=== PATIENT | female | born 2000 | race Caucasian/White ===

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

== ENCOUNTER → 2022-03-09 11:30 | Outpatient (BNVA) | payer OTHER, SELFPAY | PROVIDERS: Family Provider Family Medicine; PCP Registered Nurse; Visit Provider Nurse Practitioner Family | DX: M79.641 Pain in right hand (principal) | CPT/HCPCS: 73130 ==

== ENCOUNTER 2022-06-30 10:17 | Emergency (ER) | payer MEDICAID, SELFPAY ==
[2022-06-30 10:26] VITALS: BP 155/105; PULSE 76; RESP 16; TEMP 36.7; O2SAT 99
--- NOTE | 2022-06-30 10:41 | W.ED.SKABFB ---
HPI - Skin/Abscess/Foreign Bdy General: Chief complaint: Skin/Abscess/Foreign Body Stated complaint: hand pain Time Seen by Provider: 06/30/22 10:21 Source: patient Mode of arrival: ambulatory Limitations: no limitations History of Present Illness: Patient is a 21-year-old patient here for complaints of an acute on chronic rash to the right hand. Patient states that rash has been present for a few years but has seemed to worsen over the past several days. Patient states rash will sometimes flare and then resolve back to its baseline but never fully goes away. 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 Patient has seen PCP for this issue and prescribed topical steroids. States rash is itchy and will sometimes be painful when skin starts cracking. MD complaint: rash Onset (ago): year(s) Tetanus up to date: yes Location: R hand Severity: mild Relieving factors: none Exacerbating factors: other (work exposures) Context: none Associated symptoms: Deny chills or fever(s) Treatments prior to arrival: OTC topical medication and corticosteroid Review of Systems Const: Denies: fever(s), chills, body aches, fatigue or malaise Musc: Reports: extremity pain (R hand/rash); Denies: extremity swelling, joint pain, joint swelling, joint redness, joint warmth or joint stiffness Skin/Breast: Reports: rash, pruritus and erythema Neuro: Denies: numbness in extremities, weakness in extremities or sensory changes PFSH ED PFSH: Medical History Mood disorder Social History Smoking and tobacco status: never smoked Alcohol intake: never Current occupation: Works at [employer] Current gender identity: Female Physical Exam Const: COMMON NORMALS: no acute distress, patient oriented x3, no limitations, alert and well nourished GENERAL APPEARANCE: cooperative ORIENTATION/CONSCIOUSNESS: Yes awake, Yes oriented to person, Yes oriented to place and Yes oriented to time Extremity: COMMON NORMALS: full ROM, capillary refill normal and no clubbing, cyanosis or edema NARRATIVE EXTREMITY EXAM: see skin assessment below Neuro: COMMON NORMALS: patient oriented x3 SENSORIUM/ORIENTATION: Yes alert, Yes oriented to person, Yes oriented to place and Yes oriented to time Skin: NARRATIVE SKIN EXAM: Eczematous skin changes noted to volar aspect of R hand Course Vital Signs: Vital signs: Vital Signs Temperature 98.1 F 06/30/22 10:26 Pulse Rate 76 06/30/22 10:26 Respiratory Rate 16 06/30/22 10:26 Blood Pressure 155/105 06/30/22 10:26 Pulse Oximetry 99 06/30/22 10:26 MDM - Skin/Abscess/Foreign Bdy Medicial Decision Making Symptoms consistent with a dyshidrotic/atopic eczema vs irritant dermatitis from work exposures or a combination of both. Recommend she start using her triamcinolone cream twice daily in addition to a thick eczema emollient especially at night. Discussed possibly somehow limiting her work exposures if at all possible. Recommend follow up with PCP. Discharge Plan Discharge Patient Disposition: Home Clinical Impression: Chronic eczema of hand Condition: Stable Prescriptions: No Action phentermine 37.5 mg capsule 37.5 mg PO DAILY Rx Instructions: must administer 30 minutes before or 1-2 hours after breakfast testosterone cypionate [Depo-Testosterone] 100 mg/mL oil 100 mg SUBCUT Q7D Discharge Orders: Discharge ED (Routine); Ordered 06/30/22 Ordered By: Joanne Gifford Referrals: Evelia Franklin [Primary Care Provider] - Activity Restrictions/Additional Instructions: As we discussed-use your triamcinolone cream followed by a thick eczema emollient twice daily. We also discussed limiting your work exposures (i.e soap, dishes, grease, scrubbing, frequent hand washing, etc) to help control symptoms. Coding Level of Care Code ED Semiconductor Wafers Tester for Tony Quesada
== END 2022-06-30 11:32 | disposition home or self-care (01) ==
PROVIDERS: Emergency Provider Physician Assistant; PCP Registered Nurse
DX: L30.9 Dermatitis, unspecified (principal)
CPT/HCPCS: 99282

== ENCOUNTER 2022-08-05 15:05 | Emergency (ER) | payer MEDICAID, SELFPAY ==
--- NOTE | 2022-08-05 15:13 | XRR_ITS ---
PROCEDURE INFORMATION: Exam: XR Right Wrist Exam date and time: 08/05/2022 3:25 PM Age: 21 years old Clinical indication: Injury or trauma; Fall; Blunt trauma (contusions or hematomas); Wrist; Right TECHNIQUE: Imaging protocol: Radiologic exam of the right wrist. Views: 3 or more views. COMPARISON: No relevant prior studies available. FINDINGS: Bones/joints: Normal. Soft tissues: Normal. XR/XR wrist RT min 3V* [id number] IMPRESSION: No acute findings.
--- NOTE | 2022-08-05 15:13 | XRR_ITS ---
PROCEDURE INFORMATION: Exam: XR Right Hand Exam date and time: 08/05/2022 3:25 PM Age: 21 years old Clinical indication: Injury or trauma; Fall; Blunt trauma (contusions or hematomas); Hand; Right TECHNIQUE: Imaging protocol: Radiologic exam of the right hand. Views: 3 or more views. COMPARISON: No relevant prior studies available. FINDINGS: Bones/joints: Normal. Soft tissues: Normal. XR/XR hand RT min 3V* [id number] IMPRESSION: No acute findings.
[2022-08-05 15:22] VITALS: BP 130/80; PULSE 66; TEMP 36.8; O2SAT 100; BMI 37.7
--- NOTE | 2022-08-05 15:54 | W.ED.EXTPRO ---
HPI - Extremity Problem General: Chief complaint: Extremity Injury, Upper Stated complaint: right wrist and hand injury Time Seen by Provider: 08/05/22 15:29 History of Present Illness: 21-year-old female presents emergency department chief complaint being angry in which she struck the right side of her hand involving the proximal portion of the fifth finger up against a coffee table patient reports moderate swelling and pain and abrasion located to it which is concerned she may have broken it patient presents to the ER for further assessment and management Associated symptoms: Deny chest pain or fever(s) Review of Systems General: Reports: 10 or more systems reviewed and unremarkable except in HPI and below Const: Denies: fever(s), chills, fatigue or malaise Eyes: Denies: change in vision or blurry vision Card: Denies: chest pain or palpitations Resp: Denies: dyspnea or productive cough GI: Denies: abdominal pain, nausea or vomiting : Denies: flank pain Musc: Reports: extremity pain and extremity swelling Skin/Breast: Reports: erythema and skin pain Neuro: Denies: headache(s) Psych: Denies: anxiety or depression Doug/Lymph: Denies: easy bleeding All/Imm: Denies: urticaria, throat swelling or facial swelling PFSH ED PFSH: Medical History (Updated 08/05/22 @ 16:01 by Gabriel Quispe) Mood disorder Social History Smoking and tobacco status: never smoked Alcohol intake: never Substance/Drug Use: never Current occupation: Works at [employer] Current gender identity: Female Physical Exam Const: COMMON NORMALS: no acute distress, patient oriented x3 and healthy appearing HENMT: COMMON NORMALS: normocephalic and atraumatic HEAD & SCALP: normocephalic and atraumatic Eye: COMMON NORMALS: Equal, round and reactive pupils present and EOMs intact bilaterally PUPIL: Yes Equal, round and reactive pupils present Neck/C-Spine: COMMON NORMALS: full ROM, supple and no JVD Lymph: LYMPHATIC: no lymphadenopathy noted Chest: COMMONS NORMALS: normal inspection of the chest and normal palpation of entire chest wall Resp: COMMON NORMALS: normal respiratory effort, No retractions and clear to auscultation bilaterally EFFORT & INSPECTION: Yes able to speak in complete sentences and Yes symmetric chest movement AUSCULTATION: clear to auscultation bilaterally Cardio: COMMON NORMALS: no JVD, regular rate and regular rhythm RATE: regular rate RHYTHM: regular rhythm GI: COMMON NORMALS: Normal to inspection, nondistended, normoactive bowel sounds present, Soft to palpation and non-tender INSPECTION: Yes normal to inspection PALPATION: Yes Soft to palpation : COMMON NORMALS: Yes no CVA tenderness BLADDER/KIDNEY EXAM: Yes no CVA tenderness Back/Pelvis: COMMON NORMALS: no CVA tenderness Extremity: NARRATIVE EXTREMITY EXAM: What appears to be abrasion and mild swelling to the medial component of the hypothenar prominence range of motion the finger appreciated mild swelling apparent neurovascular intact distally good capillary refill appreciated Neuro: COMMON NORMALS: patient oriented x3, CN's II-XII intact bilaterally, moves all extremities and no focal motor deficits Psych: COMMON NORMALS: mental status grossly normal, Normal thought process present, cooperative and normal affect THOUGHT PROCESS: Normal thought process present Course Vital Signs: Vital signs: Vital Signs Temperature 98.3 F 08/05/22 15:22 Pulse Rate 66 08/05/22 15:22 Blood Pressure 130/80 08/05/22 15:22 Pulse Oximetry 100 08/05/22 15:22 Oxygen Delivery Me thod Room Air 08/05/22 15:22 MDM - Extremity (Nontraumatic) Medical Decision Making Basic wound care will be applied to the hand patient will be placed into a cock-up wrist splint for comfort advised further follow-up as needed primary care in 2 to 3 days in which advised to return the interim if any of your symptoms persist or worse. Lab Data Radiology Impressions Hand X-Ray 08/05/22 15:13 IMPRESSION: No acute findings. Wrist X-Ray 08/05/22 15:13 IMPRESSION: No acute findings. Discharge Plan Discharge Patient Disposition: Home Clinical Impression: Sprain and strain of wrist, Abrasion of hand and fingers Condition: Stable Prescriptions: New Motrin IB 200 mg capsule 200 mg PO Q6H PRN (Reason: pain) Qty: 30 0RF No Action phentermine 37.5 mg capsule 37.5 mg PO DAILY Rx Instructions: must administer 30 minutes before or 1-2 hours after breakfast testosterone cypionate [Depo-Testosterone] 100 mg/mL oil 100 mg SUBCUT Q7D Discharge Orders: Discharge ED (Routine); Ordered 08/05/22 Ordered By: Gabriel Quispe Referrals: Evelia Franklin [Primary Care Provider] - 4-7 days Discharge Diet: Advance as tolerated Discharge Activity: Increase activity as tolerated Patient Instructions: Abrasion (ED), Pain Management, Sprains - Wrist Activity Restrictions/Additional Instructions: Please further follow-up with her primary care doctor in 3 to 4 days, use a wrist splint for comfort take medication as prescribed and please return the interim if any of your symptoms persist or worse. Coding Level of Care Code ED Solar Sales Associate for Tony Quesada
[2022-08-05 16:08] VITALS: BP 130/80; PULSE 66; RESP 19; O2SAT 100
== END 2022-08-05 16:10 | disposition home or self-care (01) ==
PROVIDERS: Emergency Provider Emergency Medicine; PCP Registered Nurse
DX: S63.501A Unspecified sprain of right wrist, initial encounter (principal); S66.911A Strain of unspecified muscle, fascia and tendon at wrist and hand level, right hand, initial encounter; S60.511A Abrasion of right hand, initial encounter; W22.8XXA Striking against or struck by other objects, initial encounter
CPT/HCPCS: 73110; 73130; 99283

== ENCOUNTER 2023-10-22 03:13 | Inpatient (IN) | payer OTHER, MEDICAID, SELFPAY ==
[2023-10-22 03:23] VITALS: BMI 45.6
[2023-10-22 03:36] LABS: HCG Qualitative Urine. Negative (Negative)
[2023-10-22 03:44] LABS: Add Urine Microscopic? YES; Bilirubin Urine Neg (Negative); Blood Urine Neg (Negative); Glucose Urine UA Norm (Normal); Ketones Urine Negative (Negative); Leukocyte Esterase Urine 1+ (Negative); Nitrate Urine Negative (Negative); Protein Urine Neg (Negative); Specific Gravity, Urine 1.025 (1.005-1.030); Urine Appearance Slightly Cloudy (CLEAR); Urine Color Yellow (Yellow); Urobilinogen Urine Neg (Negative); pH Urine 5 (5-7)
[2023-10-22 03:45] LABS: Add Urine Culture? No; Bacteria Urine 3+ /hpf; Mucus Urine 2+ /hpf; Squamous Epithelial Cell Urine 15-25 /hpf (0-5); WBC Urine 0-4 /hpf (0-5)
[2023-10-22 03:47] LABS: Amphetamines Screen Urine Negative (Negative); Barbiturates Screen Urine Negative (Negative); Benzodiazepines Screen Urine Negative (Negative); Cocaine Screen Urine Negative (Negative); Opiate Screen Urine Negative (Negative); PCP Screen Urine Negative (Negative); THC Screen Urine Positive (Negative)
[2023-10-22 03:47] LABS: Basophils % 0.3 %; Eosinophils # 0.2 10^3/uL (0.0-0.8); Eosinophils % 2.1 %; Hematocrit 40.4 % (36-47); Lymphocytes # 2.2 10^3/uL (0.8-4.8); Lymphocytes % 22.2 %; Mean Corpuscular HGB Conc 33.7 g/dL (30-55); Mean Corpuscular Hemoglobin 27.9 pg (27-33); Mean Corpuscular Volume 82.8 fl (85-98); Mean Platelet Volume 9.8 fL (7.4-10.4); Monocytes # 0.7 10^3/uL (0.2-0.9); Monocytes % 6.8 %; Neutrophils # 6.69 10^3/uL (1.8-7.7); Neutrophils % 68.2 %; Nucleated Red Blood Cells % 0 %; Platelet Count 315 10^3/cmm (157-399); Red Blood Count 4.88 10^6/uL (3.85-5.65); Red Cell Distribution Width 13.2 % (12.1-15.1); White Blood Count 9.82 10^3/uL (3.29-11.43)
--- NOTE | 2023-10-22 03:57 | ECG_ITS ---
[facility] Test Date: 2023-10-22 Pat Name: Nereyda Torres (AJ) Department: Room: Gender: Female Medicine And Health Service Manager: : 2000 Requested By: Micah Julian Order Number: [id number] MD: Meche Mills M.D. Measurements Intervals [place] Rate: 83 P: 33 OR: 162 QRS: 17 QRSD: 94 T: 35 QT: 344 QTc: 405 Interpretive Statements SINUS RHYTHM No previous ECG available for comparison Electronically Signed On 10-23-2023 6:25:34 CDT by Meche Mills M.D. [id number]
--- NOTE | 2023-10-22 04:09 | ED.C_ITS ---
Documented by User: Micah Julian DO 10/22/23 04:10 HPI - Psych 2 General: Chief Complaint: Psychiatric Symptoms Stated Complaint: SI Time Seen by Provider: 10/22/23 03:30 History of Present Illness: Patient presents to the ER for complaints of suicidal ideation. Patient is having thoughts of cutting her wrist and wanting to . Patient has been having these thoughts for a while but she has been seeing a counselor in the past which helped but has not seen a counselor in about a year and a half. Patient tried to get into [facility] and other therapy locations but they all have her on the waiting list. Patient also complains about headache and nausea. Review of Systems 2 General: Reports: 10 or more systems reviewed and unremarkable except in HPI and below PFSH ED 2 PFSH: Medical History Psychiatric care Mood disorder Social History Smoking and tobacco/nicotine status: never used tobacco/nicotine Alcohol intake: never Substance/Drug Use: never Current occupation: Works at [employer] Current gender identity: Female Physical Exam 2 Const: COMMON NORMALS: no acute distress, average body habitus, patient oriented x3, no limitations, healthy appearing, alert and well nourished HENMT: COMMON NORMALS: normocephalic, atraumatic, hearing grossly normal bilaterally, external ears normal, Normal external nose present and moist oral mucous membranes HEAD & SCALP: normocephalic and atraumatic NOSE: Normal external nose present EXTERNAL EAR: Yes external ears normal Neck/C-Spine: COMMON NORMALS: full ROM, no lymphadenopathy, supple, no meningeal signs, no JVD and Thyroid normal THYROID: Thyroid normal Chest: COMMONS NORMALS: normal inspection of the chest and normal palpation of entire chest wall Resp: COMMON NORMALS: normal respiratory effort, No retractions and No use of accessory muscles Cardio: COMMON NORMALS: no JVD, regular rate, regular rhythm, S1 normal heart sound present, S2 normal heart sound present, No gallops present (Cardio), No clicks present (Cardio), No murmurs present (Cardio) and No rub (Cardio) R ATE: regular rate RHYTHM: regular rhythm HEART SOUNDS: S1 normal heart sound present and S2 normal heart sound present GI: COMMON NORMALS: Normal to inspection, nondistended, normoactive bowel sounds present, Soft to palpation, non-tender, No hepatosplenomegaly present and no masses PALPATION: Yes Soft to palpation and Yes No hepatosplenomegaly present Neuro: COMMON NORMALS: patient oriented x3 SENSORIUM/ORIENTATION: Yes alert MENINGEAL SIGNS: Yes no meningeal signs Course 2 Vital Signs: Vital signs: Vital Signs Oxygen Delivery Me thod Room Air 10/22/23 03:23 MDM - Psych Differential Diagnosis Likely suicidal ideation Medical Records I reviewed the patient's medical records. Lab Data I reviewed the patient's lab results. 10/22/23 03:43 10/22/23 03:43 Laboratory Results WBC 9.82 10^3/uL (3.29-11.43) 10/22/23 03:43 RBC 4.88 10^6/uL (3.85-5.65) 10/22/23 03:43 Hgb 13.60 g/dL (11.27-16.99) 10/22/23 03:43 Hct 40.4 % (36-47) 10/22/23 03:43 MCV 82.8 fl (85-98) L 10/22/23 03:43 MCH 27.9 pg (27-33) 10/22/23 03:43 MCHC 33.7 g/dL (30-55) 10/22/23 03:43 RDW 13.2 % (12.1-15.1) 10/22/23 03:43 Plt Count 315 10^3/cmm (157-399) 10/22/23 03:43 MPV 9.8 fL (7.4-10.4) 10/22/23 03:43 Neut % (Auto) 68.2 % 10/22/23 03:43 Lymph % (Auto) 22.2 % 10/22/23 03:43 [place] % (Auto) 6.8 % 10/22/23 03:43 Eos % (Auto) 2.1 % 10/22/23 03:43 Baso % (Auto) 0.3 % 10/22/23 03:43 Neut # (Auto) 6.69 10^3/uL (1.8-7.7) 10/22/23 03:43 Lymph # (Auto) 2.2 10^3/uL (0.8-4.8) 10/22/23 03:43 [place] # (Auto) 0.7 10^3/uL (0.2-0.9) 10/22/23 03:43 Eos # (Auto) 0.2 10^3/uL (0.0-0.8) 10/22/23 03:43 Baso # (Auto) 0.0 10^3/uL (0.0-0.1) 10/22/23 03:43 Nucleated RBC % (auto) 0 % 10/22/23 03:43 Nucleated RBCs # 0.0 /100WBC 10/22/23 03:43 Sodium 139 mmol/L (136-145) 10/22/23 03:43 Potassium 4.2 mmol/L (3.5-5.1) 10/22/23 03:43 Chloride 105 mmol/L (98-107) 10/22/23 03:43 Carbon Dioxide 24 mmol/L (22-29) 10/22/23 03:43 Anion Gap 14.2 (5-19) 10/22/23 03:43 BUN 13 mg/dL (6-20) 10/22/23 03:43 Creatinine 0.6 mg/dL (0.5-0.9) 10/22/23 03:43 GFR Calculation 125.0 mL/min (90-130) 10/22/23 03:43 Glucose 134 mg/dL (65-115) H 10/22/23 03:43 Calculated Osmolality 290 mOsm/kg (285-295) 10/22/23 03:43 Calcium 8.8 mg/dL (8.5-10.5) 10/22/23 03:43 Total Bilirubin 0.3 mg/dL (0.15-1.2) 10/22/23 03:43 AST 13 U/L (0-32) 10/22/23 03:43 ALT 20 U/L (0-33) 10/22/23 03:43 Alkaline Phosphatase 46 U/L (35-105) 10/22/23 03:43 Total Protein 7.0 g/dL (6.6-8.7) 10/22/23 03:43 Albumin 4.1 g/dL (3.5-5.2) 10/22/23 03:43 Globulin 2.9 g/dL (1.3-4.6) 10/22/23 03:43 TSH 4.13 uIU/mL (0.27-4.20) 10/22/23 03:43 HCG, Qual Negative (Negative) 10/22/23 03:25 Urine Color Yellow (Yellow) 10/22/23 03:30 Urine Appearance Slightly cloudy (CLEAR) 10/22/23 03:30 Urine pH 5 (5-7) 10/22/23 03:30 Ur Specific [place] 1.025 (1.005-1.030) 10/22/23 03:30 Urine Protein Neg (Negative) 10/22/23 03:30 Urine Glucose (UA) Norm (Normal) 10/22/23 03:30 Urine Ketones Negative (Negative) 10/22/23 03:30 Urine Blood Neg (Negative) 10/22/23 03:30 Urine Nitrate Negative (Negative) 10/22/23 03:30 Urine Bilirubin Neg (Negative) 10/22/23 03:30 Urine Urobilinogen Neg mg/dL (Negative) 10/22/23 03:30 Ur Leukocyte Esterase 1+ (Negative) H 10/22/23 03:30 Urine RBC None /hpf (0-2) 10/22/23 03:30 Urine WBC 0-4 /hpf (0-5) H 10/22/23 03:30 Ur Squamous Epith Cells 15-25 /hpf (0-5) H 10/22/23 03:30 Amorphous Sediment Not Reportable 10/22/23 03:30 Urine Bacteria 3+ /hpf (NONE) H 10/22/23 03:30 Urine Mucus 2+ /hpf 10/22/23 03:30 Salicylates 0.7 mg/dL (3-10) L 10/22/23 03:43 Urine Opiates Screen Negative ng/mL (Negative) 10/22/23 03:30 Acetaminophen < 5.0 ug/mL (10-30) L 10/22/23 03:43 Ur Barbiturates Screen Negative ng/mL (Negative) 10/22/23 03:30 Ur Phencyclidine Scrn Negative ng/mL (Negative) 10/22/23 03:30 Ur Amphetamines Screen Negative ng/mL (Negative) 10/22/23 03:30 U Benzodiazepines Scrn Negative ng/mL (Negative) 10/22/23 03:30 Urine Cocaine Screen Negative ng/mL (Negative) 10/22/23 03:30 U Marijuana (THC) Screen Positive ng/mL (Negative) H 10/22/23 03:30 Ethyl Alcohol < 10 mg/dL (0-10) 10/22/23 03:43 Influenza Type A Ag negative (Negative) 10/22/23 04:00 Influenza Type B Ag negative (Negative) 10/22/23 04:00 RSV Antigen Negative (Negative) 10/22/23 04:00 SARS-CoV-2 Ag (Rapid) Negative (Negative) 10/22/23 04:00 All radiology interpretation(s) finalized by discharge Discharge Plan Discharge Patient Disposition: Admitted As Inpatient Clinical Impression: Suicidal ideation Condition: Stable Prescriptions: No Action phentermine 37.5 mg capsule 37.5 mg PO DAILY Rx Instructions: must administer 30 minutes before or 1-2 hours after breakfast testosterone cypionate [Depo-Testosterone] 100 mg/mL oil 100 mg SUBCUT Q7D Motrin IB 200 mg capsule 200 mg PO Q6H PRN (Reason: pain) Qty: 30 0RF Referrals: Evelia Franklin [Primary Care Provider] - Coding Level of Care Code ED Skylights Assembler for Chg Fwd Documented by User: Mandi Dent MD 10/22/23 05:56 HPI - Psych 2 General: Chief Complaint: Psychiatric Symptoms Stated Complaint: SI Time Seen by Provider: 10/22/23 03:30 PFSH ED 2 PFSH: Medical History Psychiatric care Mood disorder Social History Smoking and tobacco/nicotine status: never used tobacco/nicotine Alcohol intake: never Substance/Drug Use: never Current occupation: Works at [employer] Current gender identity: Female Course 2 Vital Signs: Vital signs: Vital Signs Oxygen Delivery Me thod Room Air 10/22/23 03:23 MDM - Psych Medical Decision Making Patient presents here with suicidal ideations with a plan of cutting her wrist I spoke to psychiatrist and will admit at this time. Lab Data 10/22/23 03:43 10/22/23 03:43 Laboratory Results WBC 9.82 10^3/uL (3.29-11.43) 10/22/23 03:43 RBC 4.88 10^6/uL (3.85-5.65) 10/22/23 03:43 Hgb 13.60 g/dL (11.27-16.99) 10/22/23 03:43 Hct 40.4 % (36-47) 10/22/23 03:43 MCV 82.8 fl (85-98) L 10/22/23 03:43 MCH 27.9 pg (27-33) 10/22/23 03:43 MCHC 33.7 g/dL (30-55) 10/22/23 03:43 RDW 13.2 % (12.1-15.1) 10/22/23 03:43 Plt Count 315 10^3/cmm (157-399) 10/22/23 03:43 MPV 9.8 fL (7.4-10.4) 10/22/23 03:43 Neut % (Auto) 68.2 % 10/22/23 03:43 Lymph % (Auto) 22.2 % 10/22/23 03:43 [place] % (Auto) 6.8 % 10/22/23 03:43 Eos % (Auto) 2.1 % 10/22/23 03:43 Baso % (Auto) 0.3 % 10/22/23 03:43 Neut # (Auto) 6.69 10^3/uL (1.8-7.7) 10/22/23 03:43 Lymph # (Auto) 2.2 10^3/uL (0.8-4.8) 10/22/23 03:43 [place] # (Auto) 0.7 10^3/uL (0.2-0.9) 10/22/23 03:43 Eos # (Auto) 0.2 10^3/uL (0.0-0.8) 10/22/23 03:43 Baso # (Auto) 0.0 10^3/uL (0.0-0.1) 10/22/23 03:43 Nucleated RBC % (auto) 0 % 10/22/23 03:43 Nucleated RBCs # 0.0 /100WBC 10/22/23 03:43 Sodium 139 mmol/L (136-145) 10/22/23 03:43 Potassium 4.2 mmol/L (3.5-5.1) 10/22/23 03:43 Chloride 105 mmol/L (98-107) 10/22/23 03:43 Carbon Dioxide 24 mmol/L (22-29) 10/22/23 03:43 Anion Gap 14.2 (5-19) 10/22/23 03:43 BUN 13 mg/dL (6-20) 10/22/23 03:43 Creatinine 0.6 mg/dL (0.5-0.9) 10/22/23 03:43 GFR Calculation 125.0 mL/min (90-130) 10/22/23 03:43 Glucose 134 mg/dL (65-115) H 10/22/23 03:43 Calculated Osmolality 290 mOsm/kg (285-295) 10/22/23 03:43 Calcium 8.8 mg/dL (8.5-10.5) 10/22/23 03:43 Total Bilirubin 0.3 mg/dL (0.15-1.2) 10/22/23 03:43 AST 13 U/L (0-32) 10/22/23 03:43 ALT 20 U/L (0-33) 10/22/23 03:43 Alkaline Phosphatase 46 U/L (35-105) 10/22/23 03:43 Total Protein 7.0 g/dL (6.6-8.7) 10/22/23 03:43 Albumin 4.1 g/dL (3.5-5.2) 10/22/23 03:43 Globulin 2.9 g/dL (1.3-4.6) 10/22/23 03:43 TSH 4.13 uIU/mL (0.27-4.20) 10/22/23 03:43 HCG, Qual Negative (Negative) 10/22/23 03:25 Urine Color Yellow (Yellow) 10/22/23 03:30 Urine Appearance Slightly cloudy (CLEAR) 10/22/23 03:30 Urine pH 5 (5-7) 10/22/23 03:30 Ur Specific [place] 1.025 (1.005-1.030) 10/22/23 03:30 Urine Protein Neg (Negative) 10/22/23 03:30 Urine Glucose (UA) Norm (Normal) 10/22/23 03:30 Urine Ketones Negative (Negative) 10/22/23 03:30 Urine Blood Neg (Negative) 10/22/23 03:30 Urine Nitrate Negative (Negative) 10/22/23 03:30 Urine Bilirubin Neg (Negative) 10/22/23 03:30 Urine Urobilinogen Neg mg/dL (Negative) 10/22/23 03:30 Ur Leukocyte Esterase 1+ (Negative) H 10/22/23 03:30 Urine RBC None /hpf (0-2) 10/22/23 03:30 Urine WBC 0-4 /hpf (0-5) H 10/22/23 03:30 Ur Squamous Epith Cells 15-25 /hpf (0-5) H 10/22/23 03:30 Amorphous Sediment Not Reportable 10/22/23 03:30 Urine Bacteria 3+ /hpf (NONE) H 10/22/23 03:30 Urine Mucus 2+ /hpf 10/22/23 03:30 Salicylates 0.7 mg/dL (3-10) L 10/22/23 03:43 Urine Opiates Screen Negative ng/mL (Negative) 10/22/23 03:30 Acetaminophen < 5.0 ug/mL (10-30) L 10/22/23 03:43 Ur Barbiturates Screen Negative ng/mL (Negative) 10/22/23 03:30 Ur Phencyclidine Scrn Negative ng/mL (Negative) 10/22/23 03:30 Ur Amphetamines Screen Negative ng/mL (Negative) 10/22/23 03:30 U Benzodiazepines Scrn Negative ng/mL (Negative) 10/22/23 03:30 Urine Cocaine Screen Negative ng/mL (Negative) 10/22/23 03:30 U Marijuana (THC) Screen Positive ng/mL (Negative) H 10/22/23 03:30 Ethyl Alcohol < 10 mg/dL (0-10) 10/22/23 03:43 Influenza Type A Ag negative (Negative) 10/22/23 04:00 Influenza Type B Ag negative (Negative) 10/22/23 04:00 RSV Antigen Negative (Negative) 10/22/23 04:00 SARS-CoV-2 Ag (Rapid) Negative (Negative) 10/22/23 04:00 Discharge Plan Discharge Patient Disposition: Admitted As Inpatient Clinical Impression: Suicidal ideation Condition: Stable Prescriptions: No Action phentermine 37.5 mg capsule 37.5 mg PO DAILY Rx Instructions: must administer 30 minutes before or 1-2 hours after breakfast testosterone cypionate [Depo-Testosterone] 100 mg/mL oil 100 mg SUBCUT Q7D Motrin IB 200 mg capsule 200 mg PO Q6H PRN (Reason: pain) Qty: 30 0RF Referrals: Evelia Franklin [Primary Care Provider] - Coding Level of Care Code ED Skylights Assembler for Tony Quesada
[2023-10-22] MEDS: acetaminophen 500 mg Tablet 1000 MG PO (04:12)
[2023-10-22] MEDS: promethazine 25 mg Tablet PO (04:12)
[2023-10-22 04:16] LABS: Alanine Aminotransferase 20 U/L (0-33); Albumin Level 4.1 g/dL (3.5-5.2); Alkaline Phosphatase 46 U/L (35-105); Anion Gap 14.2 (5-19); Aspartate Amino Transferase 13 U/L (0-32); Blood Urea Nitrogen 13 mg/dL (6-20); Calcium 8.8 mg/dL (8.5-10.5); Carbon Dioxide 24 mmol/L (22-29); Chloride 105 mmol/L (98-107); Creatinine Clr Calc Pharmacy 215.3924; Globulin 2.9 g/dL (1.3-4.6); Glucose 134 mg/dL (65-115); Osmolality Calculated 290 mOsm/kg (285-295); Potassium 4.2 mmol/L (3.5-5.1); Salicylate 0.7 mg/dL (3-10); Sodium 139 mmol/L (136-145); Thyroid Stimulating Hormone 4.13 uIU/mL (0.27-4.20); Total Bilirubin 0.3 mg/dL (0.15-1.2)
[2023-10-22 04:22] LABS: Acetaminophen < 5.0 ug/mL (10-30); Alcohol Level < 10 mg/dL (0-10)
[2023-10-22 04:24] LABS: Influenza A by IFA negative (Negative); Influenza B by IFA negative (Negative)
[2023-10-22 04:25] LABS: RSV Transfer Patient (ED) Negative (Negative); SARS Covid-2 Antigen Negative (Negative)
[2023-10-22 06:07] VITALS: BP 134/86; PULSE 80; O2SAT 97
[2023-10-22 06:24] VITALS: BP 140/87; PULSE 72; RESP 18; TEMP 36.6; O2SAT 99
--- NOTE | 2023-10-22 09:49 | PC.NURSE ---
PT CURRENTLY DENIES SI/HI/AH/VH. PT CURRENTLY DENIES ANXIETY AT THIS TIME. PT CURRENTLY ENDORSES DEPRESSION RATING IT A 7/10 ON A 0-10 SCALE WHERE 0 IS NONE AND 10 IS THE WORST POSSIBLE. PT APPEARS FLAT AND BLAND IN AFFECT. PT WAS COOPERATIVE WITH ASSESSMENT. DURING ASSESSMENT PT BARELY MADE EYE CONTACT OR LIFTED HEAD OFF THE BED TO ADDRESS ME UNTIL PHYSICAL PORTION OF ASSESSMENT. PT CURRENT NEEDS ARE MET AT THIS TIME.
[2023-10-22 14:00] VITALS: BP 125/69; PULSE 59; RESP 18; TEMP 37.1; O2SAT 96
--- NOTE | 2023-10-22 18:55 | P.NPUHP_ITS ---
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 trazodone at night for insomnia. #4?? TO-15 minute checks #5?? Will attempt to gather collateral information ? Involuntary Hold Information 2 96 Hour Hold: 96 Hour Involuntary Admission: No Attestations NPU 2 Medical Necessity Statement*: Inpatient hospitalization is medically necessary and deemed to ?be ?the clinically appropriate intervention ?at this time.? We will monitor/initiate medications and make changes as indicated.? The patient will be in the hospital for over 2 midnights.? The patient?s likely length of stay 5-7 days. Coding Level of Care Code Acute Code for [facility] Fwd Diagnoses Major depressive disorder, recurrent severe without psychotic features F33.2 Borderline personality disorder F60.3 DESIRE (generalized anxiety disorder) F41.1 Suicidal ideation R45.851 Panic attacks F41.0
[2023-10-22 19:54] VITALS: BP 129/84; PULSE 72; RESP 20; TEMP 36.6; O2SAT 98
[2023-10-22] MEDS: hyDROXYzine 25 mg Capsule 50 MG PO (20:41)
[2023-10-22] MEDS: trazodone 50 mg Tablet PO (20:41)
[2023-10-22] MEDS: ondansetron 4 MG Tablet PO (23:02)
--- NOTE | 2023-10-22 23:36 | PC.NURSE ---
Patient inquired about leaving [facility] Charge nurse informed patient that he would need to inform M.D. and the doctor is likely to request patient stay until speaking with provider tomorrow (especially since she answered + to SI). Patient was alright with that and decided NOT to attempt to leave [facility]
[2023-10-23 06:00] VITALS: BP 138/89; PULSE 74; RESP 18; TEMP 36.7; O2SAT 97
--- NOTE | 2023-10-23 09:01 | PC.NURSE ---
IN BED RESTING AROUSES TO VOICE. PRONOUNS HE AND HIM PT STATES HE DID NOT SLEEP WELL LAST NIGHT AND ONLY SLEPT ON AND OFF. DENIES PAIN. DENIES SI/HI AND AVH AT THIS TIME. PT IS NOTED TO HAVE FLAT AFFECT AND DEPRESSED MOOD. EVASIVE WITH ASSESSMENT. RATES ANXIETY 3/10 AND DEPRESSION 5/10. PT EDUCATED ON PRN MEDICATIONS AND TO LET NURSES KNOW IF HE NEEDS ANY. VERBALIZED UNDERSTANDING. ALL QUESTIONS ANSWERED AND SUPPORT WAS VOICED.
[2023-10-23] MEDS: sertraline 50 mg Tablet 25 MG PO (09:14)
[2023-10-23 14:00] VITALS: BP 152/83; PULSE 68; RESP 16; TEMP 36.7; O2SAT 96
--- NOTE | 2023-10-23 16:41 | W.PM.NPUPNS ---
Subjective NPU Subjective: 23-year-old trans male history of borderline personality disorder, DESIRE, panic attacks and major depressive disorder admitted with suicidal ideation with a history of chronic self-injurious behavior. He reported that he was feeling better today and reported that he was hopeful to get help with his chronic thoughts of cutting. He had reported having engaged in this behavior for him over 8 years. He was unable to recall the longest period of time he had gone without engaging in self-injurious behavior. He had reported frequent emotional dysregulation. He had reported difficulties with concentration at times. He had reported struggles with managing oral intake as well as he had reported having been a binge eater for many years without any history of purging. He had reported that he had felt that the binge eating was out of control and that it may have contributed to the patient having been prevented from engaging in further transition being chemically as he had reported weight gain from testosterone and an inability to lose the weight from having been placed on phentermine despite being compliant with his medications. No side effects noted from his medications today. He had reported some improvement in sleep. Patient reports having panic attacks yesterday uncued and reports that she needs medication for anxiety. Mental Status Exam MSE Comments: Patient is a casually dressed person who appeared his stated age with fair eye contact and normal gait. His hygiene was fair. He was calm and cooperative on interview. His speech was normal in regards to rate rhythm and prosody. His thought process was linear logical and goal-directed. His thought content show fleeting suicidal ideation. There is no clear evidence of delusional thinking. He did not appear to be responding to internal stimuli. His attention span appeared adequate. His mood was described as depressed. His affect was restricted in range and mood congruent. His insight appeared poor. His judgment appeared poor. His impulse control appeared limited. His recent remote memory were grossly intact. He was alert and oriented to person place time and situation. Vitals/I&O/Wt Last Vital Signs Temp 98.0 F 10/23/23 14:00 Pulse 68 10/23/23 14:00 Resp 16 10/23/23 14:00 BP 152/83 10/23/23 14:00 Pulse Ox 96 10/23/23 14:00 O2 Del Method Room Air 10/23/23 14:00 Weight last 48 hrs Weight 136.078 kg Data NPU 10/22/23 03:43 10/22/23 03:43 A&P Assessment and plan (1) Major depressive disorder, recurrent severe without psychotic features: (2) Borderline personality disorder: (3) DESIRE (generalized anxiety disorder): (4) Suicidal ideation: (5) Panic attacks: (6) Binge eating disorder: Plan 23-year-old patient with a history of chronic suicidality, borderline personality traits, severe depression and panic attacks admitted with worsening suicidality currently not receiving treatment. #1.? Engage patient in individual milieu and group therapy. #2?? Recommend sober living treatment at the highest level of care to which the patient is willing to commit #3???Increase Zoloft to 50mg in am target anxiety and depression; add trazodone at night for insomnia. Recommend DBT therapy. Binge Eating Disorder Scale to be completed. #4?? TO-15 minute checks #5?? Will attempt to gather collateral information ? Involuntary Hold Information 96 Hour Hold: 96 Hour Involuntary Admission: No Attestations NPU Medical Necessity Statement*: Inpatient hospitalization is medically necessary and deemed to ?be ?the clinically appropriate intervention ?at this time.? We will monitor/initiate medications and make changes as indicated.? The patient?s likely length of stay 3-4 days. Coding Level of Care Code Acute Code for [facility] Fwd Diagnoses Major depressive disorder, recurrent severe without psychotic features F33.2 Borderline personality disorder F60.3 DESIRE (generalized anxiety disorder) F41.1 Suicidal ideation R45.851 Panic attacks F41.0 Binge eating disorder F50.81
[2023-10-23] MEDS: OLANZapine 5 mg ODT PO (18:12)
--- NOTE | 2023-10-23 18:13 | PC.NURSE ---
PT STATES SHE HAS INCREASED ANXIETY AND REQUESTS SOMETHING FOR ANXIETY, PT WAS GIVEN ZYDIS 5 MG ORDERED FOR ANXIETY.
[2023-10-23] MEDS: hyDROXYzine 25 mg Capsule 50 MG PO (19:17)
[2023-10-23 20:35] VITALS: BP 137/85; PULSE 74; RESP 18; TEMP 36.7; O2SAT 96
[2023-10-23] MEDS: trazodone 50 mg Tablet PO ×2 (21:09)
[2023-10-24 05:57] VITALS: BP 136/81; PULSE 74; RESP 16; TEMP 36.6; O2SAT 94
[2023-10-24] MEDS: sertraline 50 mg Tablet PO (08:17)
--- NOTE | 2023-10-24 08:30 | PC.NURSE ---
IN BED RESTING, PT IS NOTED TO WITHDRAW AT TIMES AND ISOLATE TO ROOM. DENIES SI/HI AND AVH AT THIS TIME. PT STATES GOAL FOR THE DAY IS TO DISCHARGE. RATES ANXIETY AND DEPRESSION 0/10. REPORTS HE SLEPT WELL. NOTED TO HAVE FLAT AFFECT AND DEPRESSED MOOD. ALL QUESTIONS ANSWERED AND SUPPORT VOICED.
[2023-10-24 09:45] VITALS: BP 136/81; PULSE 74; RESP 16; TEMP 36.6; O2SAT 94
[2023-10-24 14:00] VITALS: BP 150/95; PULSE 74; RESP 18; TEMP 36.7; O2SAT 96
--- NOTE | 2023-10-24 14:55 | W.PM.NPUDCS ---
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 MCH 27.9 pg (27-33) 10/22/23 03:43 MCHC 33.7 g/dL (30-55) 10/22/23 03:43 RDW 13.2 % (12.1-15.1 ) 10/22/23 03:43 Plt Count 315 10^3/cmm (157 -399) 10/22/23 03:43 MPV 9.8 fL (7.4-10.4) 10/22/23 03:43 Neut % (Auto) 68.2 % 10/22/23 03:43 Lymph % (Auto) 22.2 % 10/22/23 03:43 [place] % (Auto) 6.8 % 10/22/23 03:43 Eos % (Auto) 2.1 % 10/22/23 03:43 Baso % (Auto) 0.3 % 10/22/23 03:43 Neut # (Auto) 6.69 10^3/uL (1.8 -7.7) 10/22/23 03:43 Lymph # (Auto) 2.2 10^3/uL (0.8- 4.8) 10/22/23 03:43 [place] # (Auto) 0.7 10^3/uL (0.2- 0.9) 10/22/23 03:43 Eos # (Auto) 0.2 10^3/uL (0.0- 0.8) 10/22/23 03:43 Baso # (Auto) 0.0 10^3/uL (0.0- 0.1) 10/22/23 03:43 Nucleated RBC % (a uto) 0 % 10/22/23 03:43 Nucleated RBCs # 0.0 /100WBC 10/22/23 03:43 Sodium 139 mmol/L (136-1 45) 10/22/23 03:43 Potassium 4.2 mmol/L (3.5-5 .1) 10/22/23 03:43 Chloride 105 mmol/L (98-10 7) 10/22/23 03:43 Carbon Dioxide 24 mmol/L (22-29) 10/22/23 03:43 Anion Gap 14.2 (5-19) 10/22/23 03:43 BUN 13 mg/dL (6-20) 10/22/23 03:43 Creatinine 0.6 mg/dL (0.5-0. 9) 10/22/23 03:43 GFR Calculation 125.0 mL/min (90- 130) 10/22/23 03:43 Glucose 134 mg/dL (65-115 ) H 10/22/23 03:43 Calculated Osmolal ity 290 mOsm/kg (285- 295) 10/22/23 03:43 Calcium 8.8 mg/dL (8.5-10 .5) 10/22/23 03:43 Total Bilirubin 0.3 mg/dL (0.15-1 .2) 10/22/23 03:43 AST 13 U/L (0-32) 10/22/23 03:43 ALT 20 U/L (0-33) 10/22/23 03:43 Alkaline Phosphata se 46 U/L (35-105) 10/22/23 03:43 Total Protein 7.0 g/dL (6.6-8.7 ) 10/22/23 03:43 Albumin 4.1 g/dL (3.5-5.2 ) 10/22/23 03:43 Globulin 2.9 g/dL (1.3-4.6 ) 10/22/23 03:43 TSH 4.13 uIU/mL (0.27 -4.20) 10/22/23 03:43 HCG, Qual Negative (Negati ve) 10/22/23 03:25 Urine Color Yellow (Yellow) 10/22/23 03:30 Urine Appearance Slightly cloudy (CLEAR) 10/22/23 03:30 Urine pH 5 (5-7) 10/22/23 03:30 Ur Specific Gravit y 1.025 (1.005-1.0 30) 10/22/23 03:30 Urine Protein Neg (Negative) 10/22/23 03:30 Urine Glucose (UA) Norm (Normal) 10/22/23 03:30 Urine Ketones Negative (Negati ve) 10/22/23 03:30 Urine Blood Neg (Negative) 10/22/23 03:30 Urine Nitrate Negative (Negati ve) 10/22/23 03:30 Urine Bilirubin Neg (Negative) 10/22/23 03:30 Urine Urobilinogen Neg mg/dL (Negati ve) 10/22/23 03:30 Ur Leukocyte Brittany ase 1+ (Negative) H 10/22/23 03:30 Urine RBC None /hpf (0-2) 10/22/23 03:30 Urine WBC 0-4 /hpf (0-5) H 10/22/23 03:30 Ur Squamous Epith Cells 15-25 /hpf (0-5) H 10/22/23 03:30 Amorphous Sediment Not Reportable 10/22/23 03:30 Urine Bacteria 3+ /hpf (NONE) H 10/22/23 03:30 Urine Mucus 2+ /hpf 10/22/23 03:30 Salicylates 0.7 mg/dL (3-10) L 10/22/23 03:43 Urine Opiates Scre en Negative ng/mL (N egative) 10/22/23 03:30 Acetaminophen < 5.0 ug/mL (10-3 0) L 10/22/23 03:43 Ur Barbiturates Sc reen Negative ng/mL (N egative) 10/22/23 03:30 Ur Phencyclidine S crn Negative ng/mL (N egative) 10/22/23 03:30 Ur Amphetamines Sc reen Negative ng/mL (N egative) 10/22/23 03:30 U Benzodiazepines Scrn Negative ng/mL (N egative) 10/22/23 03:30 Urine Cocaine Scre en Negative ng/mL (N egative) 10/22/23 03:30 U Marijuana (THC) Screen Positive ng/mL (N egative) H 10/22/23 03:30 Ethyl Alcohol < 10 mg/dL (0-10) 10/22/23 03:43 Influenza Type A A g negative (Negati ve) 10/22/23 04:00 Influenza Type B A g negative (Negati ve) 10/22/23 04:00 RSV Antigen Negative (Negati ve) 10/22/23 04:00 SARS-CoV-2 Ag (Rap id) Negative (Negati ve) 10/22/23 04:00 Vitals: Last Vital Signs Temp 98.1 F 10/24/23 14:00 Pulse 74 10/24/23 14:00 Resp 18 10/24/23 14:00 BP 150/95 10/24/23 14:00 Pulse Ox 96 10/24/23 14:00 O2 Del Method Room Air 10/23/23 14:00 Discharge Plan Discharge Patient Disposition: Home Condition: Stable Prescriptions: New sertraline 50 mg Tablet 75 mg PO DAILY 30 Days Qty: 45 1RF trazodone 50 mg Tablet 50 mg PO BEDTIME 30 Days Qty: 30 1RF Discharge Orders: Discharge Order (Routine); Ordered 10/24/23 Ordered By: Dg Alegria Referrals: David Gomes [Therapist] - 10/28/23 12:45 pm (7 day NPU follow up safety plan only. ) Ksenia Garnett DO [Referring] - 10/28/23 3:00 pm (Follow up with Chris Carvaloh NP) Discharge Diet: Usual diet Discharge Activity: Resume usual activity Patient Instructions: Depression (DC), Borderline Personality Disorder (DC), Anxiety (DC), Suicide Prevention (DC), Binge Eating Disorder (GEN), Opioid Safety, Panic Attack Discharge Attestations NPU Time Spent in Discharge Care*: less than 30 min Specific Discharge Activities: Specific discharge activities: educating patient, discussing with geriatric case manager/social workers/dc planners and documenting/other paperwork Coding Level of Care Code Acute Code for Chg Fwd Diagnoses Major depressive disorder, recurrent severe without psychotic features F33.2 Borderline personality disorder F60.3 DESIRE (generalized anxiety disorder) F41.1 Suicidal ideation R45.851 Panic attacks F41.0 Binge eating disorder F50.81
== END 2023-10-24 15:37 | disposition home or self-care (01) | DRG 885 ==
LOC: ER 05:56 → NP 06:04
PROVIDERS: Emergency Medicine; Admitting Provider Psychiatry & Neurology Psychiatry; Emergency Provider Emergency Medicine; PCP Registered Nurse; Visit Provider Psychiatry & Neurology Psychiatry
DX: F33.2 Major depressive disorder, recurrent severe without psychotic features (principal); R45.851 Suicidal ideations; F60.3 Borderline personality disorder; F41.1 Generalized anxiety disorder; F41.0 Panic disorder [episodic paroxysmal anxiety]; F50.81 Binge eating disorder; Z62.810 Personal history of physical and sexual abuse in childhood; Z91.52 Personal history of nonsuicidal self-harm; F64.0 Transsexualism; Z79.890 Hormone replacement therapy
CPT/HCPCS: 36415; 80053; 80306; 80307; 81001; 81025; 84443; 85025; 87426; 87804; 87899; 93005; 97165; 99285; Q0162; Q0169